=== PATIENT | female | born 1970 | race Caucasian/White ===

== ENCOUNTER 2016-02-26 13:21 | Outpatient (CLI) ==
[2015-06-10 15:14] VITALS: BMI 67.1
--- NOTE | 2016-02-26 14:03 | DI ---
EXAM: LUMBAR SPINE 5 VIEWS HISTORY: Back pain FINDINGS: Lumbar spine five views including bilateral obliques. No comparison. Subtle scoliosis c onvex to the right at the thoracolumbar spine. Sacroiliac joints are within normal limits. Bilater al oblique views reveal no obvious pars interarticularis defect. There is no spondylolisthesis or l oss of vertebral body height. Mild degenerative endplate changes diffusely. Moderate facet arthrop athy lumbosacral junction. No acute fracture. IMPRESSION: Degenerative changes of the spine most noted lumbosacral junction. Subtle scoliosis.
== END 2016-02-26 13:22 | disposition home or self-care (01) ==
LOC: RAD 13:21
PROVIDERS: ATTEND Physician Assistant
DX: R52 Pain, unspecified (principal)

== ENCOUNTER 2016-03-03 19:52 | Emergency (ER) ==
[2016-03-03 20:05] VITALS: BP 150/72; TEMP 99.7; BMI 68.4
--- NOTE | 2016-03-03 20:12 | ED.PDOC ---
General ED Provider: Dr. JEAN NOVAK Chief Complaint: Constipation Stated Complaint: Been constipated for couple days. took OTC meds i did help some, Time Seen by Physician: 20:10 Mode of Arrival: Wheelchair Information Source: Patient Primary Care Provider: TOM VEE Nursing and Triage Documentation Reviewed and Agree: Yes GI Complaint Exam - Abdominal Pain Complaint/Exam Onset: Gradual Symptoms Are: Still present Timing: Constant Initial Severity: Moderate Current Severity: Moderate Location of Pain: Discrete Radiates To: Reports: Flank Character: Reports: Dull, Aching Aggravating: Reports: Movement Alleviating: Reports: None Associated Signs and Symptoms: Denies: Diaphoresis, Fever, Cough, Chest pain, Dizziness, Back pain, Constipation, Blood in stool, Dysuria, Urinary frequency, Decreased urine output, Decreased appetite, Vaginal bleeding, Vaginal discharge , Nausea, Vomiting, Diarrhea, Sore throat, Decreased activity Related History: Reports: Similar episode AAA Risk Factors: Reports: None Cardiac Risk Factors: Reports: None Ectopic Risk Factors: Reports: None Ovarian Torsion Risk Factors: Reports: None Surgical Obstruction Risk Factors: Reports: None Related Surgical History: Reports: None Abdominal Findings: Absent: Pulsatile mass, Abdominal distention, Unequal femoral pulses Differential Diagnoses: Constipation Review of Systems - Review Of Systems Constitutional: Reports: No symptoms Eyes: Reports: No symptoms Ears, Nose, Mouth, Throat: Reports: No symptoms Respiratory: Reports: No symptoms Cardiac: Reports: No symptoms GI: Reports: Abdominal pain, Constipated : Reports: No symptoms Musculoskeletal: Reports: No symptoms Skin: Reports: No symptoms Neurological: Reports: No symptoms Endocrine: Reports: No symptoms Hematologic/Lymphatic: Reports: No symptoms All Other Systems: Reviewed and Negative Past Medical History - Past Medical History Previously Healthy: No Endocrine: Reports: DM 2, Dyslipidemia Cardiovascular: Reports: CAD, Hypertension Respiratory: Reports: None Hematological: Reports: None Gastrointestinal: Reports: GERD Genitourinary: Reports: None Neuro/Psych: Reports: Anxiety, Depression Musculoskeletal: Reports: Arthritis, Back Pain Cancer: Reports: None Last Menstrual Period: 2 months Other Pertinent Past Medical History: I and D of left breast - Surgical History General Surgical History: Reports: Tubal ligation, Appendectomy, Cholecystectomy - Family History Family History: Reports: None - Social History Smoking Status: Never smoker Hx Substance Use: No Alcohol Screening: None Physical Exam - Physical Exam Appearance: Well-appearing, Obese Eyes: PREMA, EOMI, Conjunctiva clear ENT: Ears normal, Nose normal, Oropharynx normal Respiratory: Airway patent, Breath sounds clear, Breath sounds equal, Respirations nonlabored Cardiovascular: RRR, Pulses normal, No rub, No murmur GI/: Tender Musculoskeletal: Normal strength, ROM intact, No edema, No calf tenderness Skin: Warm, Dry, Normal color Neurological: Sensation intact, Motor intact, Reflexes intact, Cranial nerves intact, Alert, Oriented Psychiatric: Affect appropriate, Mood appropriate Critical Care Note - Critical Care Note Total Time (mins): 0 Course - Course Orders, Labs, Meds: Orders Category Date Time Status CT ABDOMEN/PELVIS WO CONTRAST Stat RADS 03/03/16 20:09 Ordered Vital Signs: Temp Pulse Resp BP Pulse Ox 03/03/16 19:55 99.7 F H 88 20 150/72 H 95 Departure - Departure Time of Disposition: 21:00 Disposition: HOME SELF-CARE Discharge Problem: Constipation Instructions: Constipation (ED) Condition: Stable Pt referred to PMD for follow-up: Yes Additional Instructions: Increase hydration pain medication side effects discussed. Prescriptions: Polyethylene Glycol 3350 [Miralax] 17 gm PO DAILY #30 powd.pack Allergies/Adverse Reactions: Allergies Tetanus Vaccines and Toxoid [Tetanus Vaccines & Toxoid] Adverse Reaction ( Verified 06/10/15 15:11) Swelling Home Medications: Ambulatory Orders Aspirin [Jaime Chewable Aspirin] 81 mg PO DAILY 07/02/13 Furosemide [Lasix] 40 mg PO DAILY 07/02/13 Gabapentin [Neurontin] 600 mg PO TID 07/02/13 Glyburide [Diabeta] 10 mg PO BIDAC 07/02/13 Losartan Potassium [Cozaar] 25 mg PO DAILY 07/02/13 Meloxicam [Mobic] 15 mg PO DAILY 07/02/13 Metformin HCl [Glucophage Xr] 2,000 mg PO DAILY 07/02/13 Potassium Chloride [K-Dur] 20 meq PO TID 07/02/13 Cephalexin [Keflex] 500 mg PO BID #20 capsule 11/19/14 Hydrocodone/Acetaminophen [Lortab 7.5-325 mg Tablet] 1 each PO QID 11/19/14 Lorazepam [Ativan] 1 mg PO BID 11/19/14 Buspirone HCl 7.5 mg PO DAILY 06/10/15 Citalopram Hydrobromide [Celexa] 40 mg PO DAILY 06/10/15 Gentamicin Sulfate Opth [Gentak Opth Gisela] 1 drop OP Q3HR #10 drops 06/10/15 Insulin NPL/Insulin Lispro [Humalog Mix 75-25 Vial] 100 unit SUBCUT BID INSULIN 06/10/15 Insulin NPL/Insulin Lispro [Humalog Mix 75-25] 86 unit SUBCUT DIRECTED Omeprazole [Prilosec] 20 mg PO QDAC 06/10/15 Polyethylene Glycol 3350 [Miralax] 17 gm PO DAILY #30 powd.pack 03/03/16 Disposition Discussed With: Patient, Family
--- NOTE | 2016-03-03 20:47 | CT ---
EXAM: CT abdomen pelvis without intravenous contrast 03/03/2016. Sagittal and coronal reformatted images obtained HISTORY: Abdominal pain COMPARISON: 11/25/2014 FINDINGS: The liver shows no acute abnormality. Gallbladder has been removed. The adrenal glands and kidneys show no acute process. No hydronephrosis. The spleen and pancreas show no gross abnormality. No bowel obstruction. There is limited anatomic detail secondary to body habitus in combination wit h lack of intravenous contrast. No acute osseous abnormality. IMPRESSION: 1. Technically limited examination due to body habitus as well as the lack of intravenous contrast. 2. Status post cholecystectomy. 3. No urinary or bowel obstruction. 4. No acute inflammatory process identified within the abdomen or pelvis.
== END 2016-03-03 20:56 | disposition home or self-care (01) ==
LOC: ED 19:52
DX: K59.00 Constipation, unspecified (principal); Z79.899 Other long term (current) drug therapy
CPT/HCPCS: 99282

== ENCOUNTER 2016-04-25 00:19 | Emergency (ER) ==
[2016-04-25 00:30] VITALS: BP 123/65; TEMP 98.4; BMI 67.8
--- NOTE | 2016-04-25 00:57 | ED.PDOC ---
General ED Provider: Dr. HEIDI SHERIDAN Chief Complaint: Shortness of Air Stated Complaint: Patient is a 46 year old female who comes to the ER with 5 history of, nonproductive, fever of 101 approx. 3 days ago, low grade since. States she not able to sleep Time Seen by Physician: 00:56 Mode of Arrival: Wheelchair Information Source: Patient Exam Limitations: No limitations Primary Care Provider: TOM VEE Nursing and Triage Documentation Reviewed and Agree: Yes Review of Systems - Review Of Systems Constitutional: Reports: Fever Respiratory: Reports: Cough, Short of air All Other Systems: Reviewed and Negative Past Medical History - Past Medical History Previously Healthy: No Endocrine: Reports: DM 2, Dyslipidemia Cardiovascular: Reports: CAD, Hypertension Respiratory: Reports: None Hematological: Reports: None Gastrointestinal: Reports: GERD Genitourinary: Reports: None Neuro/Psych: Reports: Anxiety, Depression Musculoskeletal: Reports: Arthritis, Back Pain Cancer: Reports: None Last Menstrual Period: 2 MONTHS AGO, IS IRREGULAR Other Pertinent Past Medical History: I and D of left breast - Surgical History General Surgical History: Reports: Tubal ligation, Appendectomy, Cholecystectomy - Family History Family History: Reports: None - Social History Smoking Status: Former smoker Hx Substance Use: No Alcohol Screening: None - Immunizations Tetanus Shot up to Date: No (ALLERGY TO TETANUS) Physical Exam - Physical Exam Appearance: Well-appearing, No pain distress, Well-nourished Eyes: PREMA, EOMI, Conjunctiva clear ENT: Ears normal, Nose normal, Oropharynx normal Neck: Supple Respiratory: Breath sounds clear, Breath sounds equal, Respirations nonlabored Cardiovascular: RRR, Pulses normal, No rub, No murmur GI/: Soft, Nontender, No masses, Bowel sounds normal, No Organomegaly Musculoskeletal: Normal strength, ROM intact, No edema, No calf tenderness Skin: Warm, Dry, Normal color Neurological: Sensation intact, Motor intact, Reflexes intact, Cranial nerves intact, Alert, Oriented Psychiatric: Affect appropriate, Mood appropriate Critical Care Note - Critical Care Note Total Time (mins): 0 Course - Course Orders, Labs, Meds: Orders Category Date Time Status MOLECULAR GROUP A STREP Stat LAB 04/25/16 01:20 Results STREP SCREEN Stat LAB 04/25/16 01:20 Results Benzonatate [Tessalon Perles] MEDS 04/25/16 01:04 Discontinued 100 mg PO ONCE STA Medications Discontinued Medications Generic Name Dose Route Start Last Admin Trade Name Freq PRN Reason Stop Dose Admin Benzonatate 100 mg 04/25/16 01:04 04/25/16 01:15 Tessalon Perles PO 04/25/16 01:05 100 mg ONCE STA Administration Vital Signs: Temp Pulse Resp BP Pulse Ox 04/25/16 00:21 98.4 F 88 28 H 123/65 95 Departure - Departure Time of Disposition: 01:39 Disposition: HOME SELF-CARE Discharge Problem: Common cold virus Instructions: Pharyngitis (ED), Cold Symptoms (ED) Condition: Fair Pt referred to PMD for follow-up: Yes Additional Instructions: Push fluids Follow up with PCP in 3 days Tale medications as prescribed. Prescriptions: Benzonatate [Tessalon Perles] 100 mg PO TID PRN #25 capsule PRN Reason: Cold Symptons Allergies/Adverse Reactions: Allergies Tetanus Vaccines and Toxoid [Tetanus Vaccines & Toxoid] Adverse Reaction ( Verified 04/25/16 00:30) Swelling Home Medications: Ambulatory Orders Aspirin [Jaime Chewable Aspirin] 81 mg PO DAILY 07/02/13 Furosemide [Lasix] 40 mg PO BID 07/02/13 Gabapentin [Neurontin] 600 mg PO TID 07/02/13 Glyburide [Diabeta] 10 mg PO BIDAC 07/02/13 Losartan Potassium [Cozaar] 25 mg PO DAILY 07/02/13 Meloxicam [Mobic] 15 mg PO DAILY 07/02/13 Metformin HCl [Glucophage Xr] 2,000 mg PO DAILY 07/02/13 Potassium Chloride [K-Dur] 20 meq PO TID 07/02/13 Hydrocodone/Acetaminophen [Lortab 7.5-325 mg Tablet] 1 each PO QID 11/19/14 Lorazepam [Ativan] 1 mg PO BID 11/19/14 Buspirone HCl 15 mg PO BID 06/10/15 Citalopram Hydrobromide [Celexa] 40 mg PO DAILY 06/10/15 Omeprazole [Prilosec] 40 mg PO QDAC 06/10/15 Polyethylene Glycol 3350 [Miralax] 17 gm PO DAILY #30 powd.pack 03/03/16 Benzonatate [Tessalon Perles] 100 mg PO TID PRN #25 capsule 04/25/16 Insulin Regular, Human [Humulin R] 32 unit SQ TID 04/25/16 Ranitidine HCl [Zantac] 150 mg PO BIDAC 04/25/16 Disposition Discussed With: Patient, Family
[2016-04-25] MEDS ORDERED: TESSALON PERLES PO STA (01:04)
== END 2016-04-25 01:50 | disposition home or self-care (01) ==
LOC: ED 00:19
DX: J02.9 Acute pharyngitis, unspecified (principal)
CPT/HCPCS: 87651; 87880; 99283

== ENCOUNTER 2016-05-20 06:35 | Outpatient (CLI) ==
[2016-05-02 15:40] VITALS: BMI 67.8
--- NOTE | 2016-05-20 10:46 | ECHO2D ---
Date of Exam: 05/20/16 Ordering Physician: TOM VEE[facility] Reason for Echo: NOCTURNAL DYSPNEA M-Mode Normal Adult Results LV Dimensions Normal Adult Results AoV Opening excursions >1.6 >1.6 LVEDD-base- 3.5-5.8 4.6 Ao root dimensions 2.0-3.7 3.8 LVESD-base- 3.1-4.6 L. Atrium dimensions 1.9-3.8 4.2 Post. Wall thickness 0.8-1.1 1.4 IV septum (thickness) 0.7-1.2 1.5 Post. Wall excursion 0.72-1.3 NORMAL Septal motion NORMAL Systolic motion R. Ventricular cavity 1.5-2.0 NORMAL LVEF 60% 62% Paradoxical septal wall motion NORMAL 2-D :2-D M Mode Echocardiogram was performed using apical four chamber and left parasternal long and short axis views. Mitral, tricuspid and aortic valves appear to be normal. Contractility of the left ventricle seems to be normal, so is the cavity size. Left atrial cavity size and aortic root appear to be normal. There is no pericardial effusion. There is no thrombus noted in the left ventricular or left aortic cavity. No mitral valve prolapse noted. M-MODE: MV: THICKENED MITRAL LEAFLET (ANTERIOR) AV: NORMAL TV: NORMAL PV: CHAMBER SIZE: ENLARGED LEFT ATRIAL CAVITY WALL MOTION: NORMAL PERICARDIUM: NORMAL INTERPRETATION: 1. LEFT VENTRICULAR HYPERTROPHY WITH ENLARGED LEFT ATRIAL CAVITY 2. NORMAL LEFT VENTRICULAR CONTRACTILITY 3. NORMAL MITRAL AND AORTIC VALVES MTDD
== END 2016-05-20 06:36 | disposition home or self-care (01) ==
LOC: CAR 06:35
PROVIDERS: ATTEND Physician Assistant
DX: R06.00 Dyspnea, unspecified (principal)

== ENCOUNTER 2017-02-03 21:04 | Emergency (ER) ==
[2017-02-03 21:10] VITALS: BP 142/79; TEMP 98.8; BMI 68.1
--- NOTE | 2017-02-03 21:38 | ED.PDOC ---
General ED Provider: Dr. KOBE PEOPLES-ER Chief Complaint: Earache Stated Complaint: my throat is sore and my ear hurts Time Seen by Physician: 21:10 Mode of Arrival: Wheelchair Information Source: Patient Exam Limitations: No limitations Primary Care Provider: TOM VEE Nursing and Triage Documentation Reviewed and Agree: Yes Reviewed sepsis parameters & appropriate labs ordered?: Yes System Inflammatory Response Syndrome: Not Applicable Sepsis Protocol: For patient's 13 years and over: Temp is 96.8 and below OR 101 and greater Pulse >90 BPM Resp >20/minute Acutely Altered Mental Status Are patient's symptoms suggestive of a new infection, such as: -Pneumonia -Skin, Soft Tissue -Endocarditis -UTI -Bone, Joint Infection -Implantable Device -Acute Abdominal Infection -Wound Infection -Meningitis -Blood Stream Catheter Infection -Unknown EENT Complaint Exam - Throat Complaint/Exam Onset/Duration: 24 hrs Symptoms Are: Still present Timimg: Constant Initial Severity: Mild Current Severity: Mild Aggravating: Reports: Eating Alleviating: Reports: Antipyretics Associated Signs and Symptoms: Reports: Fever, Nasal congestion. Denies: Dysphagia, Drooling, Foreign body sensation, Chills, Cough, Wheezing, Hoarseness , Sinus discomfort, Difficulty breathing, Lethargy, Irritability, Decreased activity, Vomiting, Diarrhea, Decreased hearing Related History: Reports: Similar Episode Uvula Midline: Yes Beatriz-tonsillar Fluctuence: No Scarlatinaform Rash Present: No Stridor Present: No Sinus Tenderness Present: No Tonsillar Hypertrophy Present: Yes Tonsillar Exudate Present: No Beatriz-tonsillar Swelling Present: No Adenopathy Present: No Splenomegaly Present: No Differential Diagnoses: Pharyngitis Review of Systems - Review Of Systems Constitutional: Reports: Fever Eyes: Reports: No symptoms Ears, Nose, Mouth, Throat: Reports: Throat pain Respiratory: Reports: No symptoms Cardiac: Reports: No symptoms GI: Reports: No symptoms : Reports: No symptoms Musculoskeletal: Reports: No symptoms Skin: Reports: No symptoms Neurological: Reports: No symptoms Endocrine: Reports: No symptoms Hematologic/Lymphatic: Reports: No symptoms All Other Systems: Reviewed and Negative Past Medical History - Past Medical History Previously Healthy: No Endocrine: Reports: DM 2, Dyslipidemia Cardiovascular: Reports: CAD, Hypertension Respiratory: Reports: None Hematological: Reports: None Gastrointestinal: Reports: GERD Genitourinary: Reports: None Neuro/Psych: Reports: Anxiety, Depression Musculoskeletal: Reports: Arthritis, Back Pain Cancer: Reports: None Last Menstrual Period: 2 MONTHS Other Pertinent Past Medical History: I and D of left breast - Surgical History General Surgical History: Reports: Tubal ligation, Appendectomy, Cholecystectomy - Family History Family History: Reports: None - Social History Smoking Status: Former smoker Hx Substance Use: No Alcohol Screening: None - Immunizations Tetanus Shot up to Date: No Physical Exam - Physical Exam Appearance: Well-appearing Eyes: PREMA ENT: Ears normal, Nose normal, Erythema Neck: Supple Respiratory: Airway patent, Breath sounds clear, Breath sounds equal, Respirations nonlabored Cardiovascular: RRR, Pulses normal, No rub, No murmur GI/: Soft, Nontender, No masses, Bowel sounds normal, No Organomegaly Musculoskeletal: Normal strength Skin: Warm, Dry, Normal color Neurological: Sensation intact, Motor intact, Reflexes intact, Cranial nerves intact, Alert, Oriented Psychiatric: Affect appropriate, Mood appropriate Critical Care Note - Critical Care Note Total Time (mins): 0 Course - Course Orders, Labs, Meds: Lab Review 02/03/17 21:19 Influenza A (Rapid) Negative by naat Influenza B (Rapid) Negative by naat Orders Category Date Time Status FLU A & B RAPID TEST [RAPID FLU A/B] Stat LAB 02/03/17 21:19 Completed MOLECULAR GROUP A STREP Stat LAB 02/03/17 21:19 Results STREP SCREEN Stat LAB 02/03/17 21:19 Results Vital Signs: Temp Pulse Resp BP Pulse Ox 02/03/17 21:05 98.8 F 82 18 142/79 H 98 Departure - Departure Time of Disposition: 21:39 Disposition: HOME SELF-CARE Discharge Problem: Sore throat symptom Instructions: Strep Throat (ED) Condition: Good Pt referred to PMD for follow-up: Yes Additional Instructions: augmentin 875mg bid x 7days--f/u wtih pcp in 72hrs if not better Allergies/Adverse Reactions: Allergies Tetanus Vaccines and Toxoid [Tetanus Vaccines & Toxoid] Adverse Reaction ( Verified 04/25/16 00:30) Swelling Home Medications: Ambulatory Orders Aspirin [Jaime Chewable Aspirin] 81 mg PO DAILY 07/02/13 Furosemide [Lasix] 40 mg PO BID 07/02/13 Gabapentin [Neurontin] 600 mg PO TID 07/02/13 Glyburide [Diabeta] 10 mg PO BIDAC 07/02/13 Losartan Potassium [Cozaar] 25 mg PO DAILY 07/02/13 Meloxicam [Mobic] 15 mg PO DAILY 07/02/13 Metformin HCl [Glucophage Xr] 2,000 mg PO DAILY 07/02/13 Potassium Chloride [K-Dur] 20 meq PO TID 07/02/13 Hydrocodone/Acetaminophen [Lortab 7.5-325 mg Tablet] 1 each PO QID 11/19/14 Lorazepam [Ativan] 1 mg PO BID 11/19/14 Buspirone HCl 15 mg PO BID 06/10/15 Citalopram Hydrobromide [Celexa] 40 mg PO DAILY 06/10/15 Omeprazole [Prilosec] 40 mg PO QDAC 06/10/15 Polyethylene Glycol 3350 [Miralax] 17 gm PO DAILY #30 powd.pack 03/03/16 Benzonatate [Tessalon Perles] 100 mg PO TID PRN #25 capsule 04/25/16 Insulin Regular, Human [Humulin R] 32 unit SQ TID 04/25/16 Ranitidine HCl [Zantac] 150 mg PO BIDAC 04/25/16 Disposition Discussed With: Patient, Family
== END 2017-02-03 21:48 | disposition home or self-care (01) ==
LOC: ED 21:04
DX: J02.9 Acute pharyngitis, unspecified (principal)
CPT/HCPCS: 87502; 87651; 87880; 99283

== ENCOUNTER 2017-12-07 17:20 | Outpatient (CLI) ==
--- NOTE | 2017-12-08 08:18 | DI ---
EXAM: Two views of the chest. History: Chest pain. Comparison: Chest CT 12/26/2014 Findings: Heart size is normal. No focal consolidation. No appreciable pleural fluid and no pneumo thorax. No acute osseous abnormalities. A few calcified granulomas are seen within the thorax. Impression: No acute cardiopulmonary process
== END 2017-12-07 17:21 | disposition home or self-care (01) ==
LOC: RAD 17:20
PROVIDERS: ATTEND Physician Assistant
DX: R07.89 Other chest pain (principal)

== ENCOUNTER 2018-02-11 06:27 | Outpatient (CLI) ==
[2018-02-11] MEDS ORDERED: ATROPINE SULFATE PFS ONE (07:36)
[2018-02-11] MEDS: DOBUTAMINE 500 MG-D5W 250 ML 250 ML IV ONE ×2 (07:45→08:11)
--- NOTE | 2018-02-11 09:02 | ECHOSTRESS ---
Date of Exam: 02/11/18 Ordering Physician: [facility] Reason for Echo: ATYPICAL CHEST PAIN, DOBUTAMINE STRESS TEST--NO ISCHEMIA M-Mode Normal Adult Results LV Dimensions Normal Adult Results AoV Opening excursions >1.6 LVEDD-base- 3.5-5.8 Ao root dimensions 2.0-3.7 LVESD-base- 3.1-4.6 L. Atrium dimensions 1.9-3.8 Post. Wall thickness 0.8-1.1 IV septum (thickness) 0.7-1.2 Post. Wall excursion 0.72-1.3 Septal motion Systolic motion R. Ventricular cavity 1.5-2.0 LVEF 60% Paradoxical septal wall motion 2-D: NORMAL LEFT VENTRICULAR CONTRACTILITY--RESTING AND WITH DOBUTAMINE INFUSION M-MODE: MV: AV: TV: PV: CHAMBER SIZE: WALL MOTION: NORMAL LEFT VENTRICULAR CONTRACTILITY--RESTING AND WITH DOBUTAMINE INFUSION PERICARDIUM: INTERPRETATION: 1. NORMAL LEFT VENTRICULAR CONTRACTILITY--RESTING AND WITH DOBUTAMINE INFUSION MTDD
--- NOTE | 2018-02-11 09:09 | DOBSTECHO ---
Date of Test: 02/11/18 Ordering Physician: [facility] [place] Reason for Examination: ATYPICAL CHEST PAIN Current Medications: LANTUS, HUMULIN, GLUCOPHAGE, ASA, NEURONTIN, CELEXA, BUSPAR , COZAAR, ZANTAC, LASIX, ATIVAN, NORCO, POTASSIUM Height: 66" Weight: 415 LBS Target Heart Rate: 147/174 S-T Segment Stage Time HR BPM BP MMHG Rhythm +/- Elevation Depression Symptoms Control Sitting 76 BPM 140/72 MMHG SR X NONE Dobutamine 250mg/D5W 5cmg/KG/mn 10cmg/KG/mn 3:00 93 BPM 160/58 MMHG SR X NONE 15cmg/KG/mn 2:00 110 BPM SR X NONE 20cmg/KG/mn 2:00 140 BPM 148/58 MMHG SR X NONE 25cmg/KG/mn 30cmg/KG/mn 35cmg/KG/mn 40cmg/KG/mn 5 MIN POST INFUSION z 115 BPM 138 60 MMHG SR X NONE MIN POST INFUSION z DURATION OF INFUSION 7:00 MAXIMUM HEART RATE REACHED 140 BPM Interpretation: 98% OXYGEN SATURATION WITH DOBUTAMINE INFUSION 1. NO EVIDENCE OF ISCHEMIA BY ST-T WAVE CHANGES 2. NO CHEST PAIN OR DISCOMFORT 3. NORMAL LEFT VENTRICULAR CONTRACTILITY--RESTING AND POST EXERCISE 4. DIFFICULT STUDY BECAUSE OF BODY HABITUS MTDD
== END 2018-02-11 06:28 | disposition home or self-care (01) ==
LOC: CAR 06:27
PROVIDERS: ATTEND Physician Assistant
DX: R07.89 Other chest pain (principal)

== ENCOUNTER 2018-02-22 07:52 | Outpatient (CLI) | END 2018-02-22 07:53 | disposition home or self-care (01) | LOC: LAB 07:52 | PROVIDERS: ATTEND Nurse Practitioner | DX: E11.65 Type 2 diabetes mellitus with hyperglycemia (principal); E88.81 Metabolic syndrome and other insulin resistance; Z68.44 Body mass index [BMI] 60.0-69.9, adult | CPT/HCPCS: 36415; 80053; 82306; 82533; 82607; 83036; 84439; 84443; 85025 ==

== ENCOUNTER 2018-05-23 17:26 | Emergency (ER) ==
[2018-05-23 17:37] VITALS: BMI 70.7
[2018-05-23] MEDS ORDERED: DUONEB NEB STA (17:51)
[2018-05-23] MEDS ORDERED: TESSALON PERLES PO STA (17:51)
--- NOTE | 2018-05-23 17:51 | ED.PDOC ---
General ED Provider: Dr. HEIDI SHERIDAN Chief Complaint: Respiratory Complaint Stated Complaint: Nasal congestion/ drainage, cough (nonprod), short of air. H/ A. Symptoms x 1 week. Taking mucinex et OTC cold/ sinus med. Time Seen by Physician: 17:48 Mode of Arrival: Wheelchair Information Source: Patient Primary Care Provider: TOM VEE Nursing and Triage Documentation Reviewed and Agree: Yes Does patient meet sepsis criteria?: No System Inflammatory Response Syndrome: Not Applicable Sepsis Protocol: For patient's 13 years and over: Temp is 96.8 and below OR 101 and greater Pulse >90 BPM Resp >20/minute Acutely Altered Mental Status Are patient's symptoms suggestive of a new infection, such as: -Pneumonia -Skin, Soft Tissue -Endocarditis -UTI -Bone, Joint Infection -Implantable Device -Acute Abdominal Infection -Wound Infection -Meningitis -Blood Stream Catheter Infection -Unknown Review of Systems - Review Of Systems Constitutional: Reports: No symptoms Eyes: Reports: No symptoms Ears, Nose, Mouth, Throat: Reports: No symptoms Respiratory: Reports: Cough, Short of air, Wheezing Cardiac: Reports: No symptoms GI: Reports: No symptoms : Reports: No symptoms Musculoskeletal: Reports: No symptoms Skin: Reports: No symptoms Neurological: Reports: No symptoms Endocrine: Reports: No symptoms Hematologic/Lymphatic: Reports: No symptoms All Other Systems: Reviewed and Negative Past Medical History - Past Medical History Previously Healthy: No Endocrine: Reports: DM 2, Dyslipidemia Cardiovascular: Reports: CAD, Hypertension Respiratory: Reports: None Hematological: Reports: None Gastrointestinal: Reports: GERD Genitourinary: Reports: None Neuro/Psych: Reports: Anxiety, Depression Musculoskeletal: Reports: Arthritis, Back Pain Cancer: Reports: None Last Menstrual Period: 05/05/17 Other Pertinent Past Medical History: I and D of left breast - Surgical History General Surgical History: Reports: Tubal ligation, Appendectomy, Cholecystectomy - Family History Family History: Reports: None - Social History Smoking Status: Former smoker Hx Substance Use: No Alcohol Screening: None Physical Exam - Physical Exam Appearance: Ill-appearing, Obese Ill-appearing: Mild Pain Distress: Moderate Neck: Supple Respiratory: Airway patent, Breath sounds clear, Breath sounds equal, Respirations nonlabored Cardiovascular: RRR, Pulses normal, No rub, No murmur GI/: Soft, Nontender, No masses, Bowel sounds normal, No Organomegaly Musculoskeletal: Normal strength, ROM intact, No edema, No calf tenderness Skin: Warm, Dry, Normal color Neurological: Sensation intact, Motor intact, Reflexes intact, Cranial nerves intact, Alert, Oriented Critical Care Note - Critical Care Note Total Time (mins): 0 Course - Course Hematology/Chemistry: 05/23/18 18:02 05/23/18 18:02 Orders, Labs, Meds: Lab Review 05/23/18 05/23/18 05/23/18 18:02 18:02 18:08 WBC 7.56 RBC 3.79 L Hgb 12.2 Hct 37.4 MCV 98.7 MCH 32.2 H MCHC 32.6 RDW Coeff of Gogo 13.7 Plt Count 181 Immature Gran % (Auto) 0.4 Neut % (Auto) 66.0 Lymph % (Auto) 24.3 Bay % (Auto) 6.9 Eos % (Auto) 1.9 Baso % (Auto) 0.5 Immature Gran # (Auto) 0.0 Neut # (Auto) 5.0 Lymph # (Auto) 1.8 [place] # (Auto) 0.5 Eos # (Auto) 0.1 Baso # (Auto) 0.0 Sodium 135.8 Potassium 4.30 Chloride 97.9 L Carbon Dioxide 28.2 Anion Gap 14.00 BUN 15.9 Creatinine 0.57 L Estimated GFR (MDRD) 114.00 BUN/Creatinine Ratio 27.89 Glucose 289.3 H Calcium 9.11 Total Bilirubin 0.59 AST 61.1 H ALT 29.0 Alkaline Phosphatase 118.5 Total Protein 8.08 Albumin 4.34 Globulin 3.74 Albumin/Globulin Ratio 1.16 Influ A Molecular Assay Negative by naat Influ B Molecular Assay Negative by naat Orders Category Date Time Status NEBULIZER TREATMENT Stat CARDIO 05/23/18 17:52 Completed CBC W/ AUTO DIFF Stat LAB 05/23/18 18:02 Completed COMPREHENSIVE METABOLIC PANEL Stat LAB 05/23/18 18:02 Completed FLU A/B MOLECULAR Stat LAB 05/23/18 18:08 Completed Amoxicillin/Potassium Clav [Augmentin 875-125 mg Tab] MEDS 05/23/18 18:38 Discontinued 1 tab PO ONCE STA Benzonatate [Tessalon Perles] MEDS 05/23/18 17:51 Discontinued 200 mg PO ONCE STA Ipratropium/Albuterol Neb [Duoneb] MEDS 05/23/18 17:51 Discontinued 1 vial NEB ONCE STA CHEST, 2 VIEWS PA & LAT Stat RADS 05/23/18 17:51 Completed Medications Discontinued Medications Generic Name Dose Route Start Last Admin Trade Name Geraldoq PRN Reason Stop Dose Admin Albuterol/Ipratropium 1 vial 05/23/18 17:51 05/23/18 18:00 Duoneb NEB 05/23/18 17:52 1 vial ONCE STA Administration Amoxicillin/Clavulanate Potassium 1 tab 05/23/18 18:38 Augmentin 875-125 Mg Tab PO 05/23/18 18:39 ONCE STA Benzonatate 200 mg 05/23/18 17:51 05/23/18 18:09 Tessalon Perles PO 05/23/18 17:52 200 mg ONCE STA Administration Vital Signs: Temp Pulse Resp BP Pulse Ox 05/23/18 17:29 98.0 F 74 20 168/70 H 93 L Departure - Departure Time of Disposition: 18:39 Disposition: HOME SELF-CARE Discharge Problem: Pneumonia Qualifiers: Pneumonia type: due to unspecified organism Laterality: unspecified laterality Lung location: unspecified part of lung Qualified Code(s): J18.9 - Pneumonia, unspecified organism Instructions: Community Acquired Pneumonia (ED) Condition: Stable Pt referred to PMD for follow-up: Yes IPMP verified?: No Additional Instructions: take medications as prescribed follow up with PCP in 3 days Prescriptions: Amoxicillin/Potassium Clav [Augmentin 500-125 mg Tab] 1 tab PO Q8HR #30 tablet Benzonatate [Tessalon Perles] 100 mg PO TID PRN #25 capsule PRN Reason: Cold Symptons Allergies/Adverse Reactions: Allergies Tetanus Vaccines and Toxoid [Tetanus Vaccines & Toxoid] Adverse Reaction ( Verified 05/23/18 17:36) Swelling Home Medications: Ambulatory Orders Aspirin [Jaime Chewable Aspirin] 81 mg PO DAILY 07/02/13 Furosemide [Lasix] 40 mg PO BID 07/02/13 Gabapentin [Neurontin] 900 mg PO TID 07/02/13 Losartan Potassium [Cozaar] 25 mg PO DAILY 07/02/13 Metformin HCl [Glucophage Xr] 2,000 mg PO DAILY 07/02/13 Potassium Chloride [K-Dur] 20 meq PO TID 07/02/13 Hydrocodone/Acetaminophen [Lortab 7.5-325 mg Tablet] 1 each PO QID 11/19/14 Lorazepam [Ativan] 2 mg PO DAILY 11/19/14 Buspirone HCl 15 mg PO BID 06/10/15 Citalopram Hydrobromide [Celexa] 40 mg PO DAILY 06/10/15 Omeprazole [Prilosec] 40 mg PO QDAC 06/10/15 Insulin Regular, Human [Humulin R] 150 unit SQ TID 04/25/16 Ranitidine HCl [Zantac] 150 mg PO BIDAC 04/25/16 Amoxicillin/Potassium Clav [Augmentin 500-125 mg Tab] 1 tab PO Q8HR #30 tablet 05/23/18 Benzonatate [Tessalon Perles] 100 mg PO TID PRN #25 capsule 05/23/18 Pioglitazone HCl [Actos] 15 mg PO DAILY 05/23/18 Polyethylene Glycol 3350 [Miralax] 17 gm PO DAILY PRN 05/23/18 Disposition Discussed With: Patient
--- NOTE | 2018-05-23 18:31 | DI ---
EXAM: Chest PA and lateral HISTORY: Cough. COMPARRISON: 12/07/2017 FINDINGS: The heart is normal in size. Pulmonary vascularity is within normal limits. Patchy opacit y overlies the costovertebral angles on lateral radiograph. This is not well localized on the PA rad iograph. No evidence of pleural effusion is seen. IMPRESSION: Patchy opacities overlying the costovertebral angle seen only on lateral radiograph. This is concern ing for dependent atelectasis versus pneumonia. Recommend follow-up two-view chest radiograph series in six - 8 weeks to demonstrate resolution and exclude other etiologies.
[2018-05-23] MEDS ORDERED: AUGMENTIN 875-125 MG TAB PO STA (18:38)
[2018-05-23 18:48] VITALS: BP 135/92; TEMP 98.7
== END 2018-05-23 18:53 | disposition home or self-care (01) ==
LOC: ED 17:26
DX: R05 Cough (principal); R09.81 Nasal congestion; R06.02 Shortness of breath; R51 Headache; R06.2 Wheezing; J18.9 Pneumonia, unspecified organism
CPT/HCPCS: 36415; 80053; 85025; 87502; 94640; 99283

== ENCOUNTER 2018-08-21 16:51 | Emergency (ER) ==
[2018-08-21 16:57] VITALS: BP 146/82; TEMP 100; BMI 69.9
--- NOTE | 2018-08-21 17:08 | ED.PDOC ---
General ED Provider: Dr. KOBE BENOIT Chief Complaint: Abdominal Pain Stated Complaint: Abdominal pain. States has been nauseated and having conspitation for several days and has not had a good bowel movement in a while. States she take stool softners and most recently ingested mag citrate. Developed much discomfort Has not been eating, thinks she may have a blockage. Was seen by her pcp. States she frequently has loud burps after drinkng fluids which are malodorous. Denies nausea or vomiting Time Seen by Physician: 17:30 Mode of Arrival: Wheelchair Information Source: Patient Exam Limitations: No limitations Primary Care Provider: TOM VEE Nursing and Triage Documentation Reviewed and Agree: Yes Does patient meet sepsis criteria?: No System Inflammatory Response Syndrome: Pulse >90 BPM, Not Applicable Sepsis Protocol: For patient's 13 years and over: Temp is 96.8 and below OR 101 and greater Pulse >90 BPM Resp >20/minute Acutely Altered Mental Status Are patient's symptoms suggestive of a new infection, such as: -Pneumonia -Skin, Soft Tissue -Endocarditis -UTI -Bone, Joint Infection -Implantable Device -Acute Abdominal Infection -Wound Infection -Meningitis -Blood Stream Catheter Infection -Unknown GI Complaint Exam - Abdominal Pain Complaint/Exam Onset: Gradual Duration: 4-5 d Symptoms Are: Still present Timing: Intermittent Initial Severity: Moderate Current Severity: Mild Location of Pain: Diffuse, RUQ, LUQ, Epigastric Character: Reports: Aching, Cramping, Colicky Aggravating: Reports: None Alleviating: Reports: Spontaneous resolution Associated Signs and Symptoms: Reports: Diarrhea AAA Risk Factors: Reports: None Cardiac Risk Factors: Reports: None Ectopic Risk Factors: Reports: None Ovarian Torsion Risk Factors: Reports: None Surgical Obstruction Risk Factors: Reports: None Related Surgical History: Reports: None Abdominal Findings: Present: CVA Tenderness. Absent: Pulsatile mass, Abdominal distention, Rebound tenderness, Peritoneal signs, McBurney's Point tender, Hernia, Inguinal swelling Review of Systems - Review Of Systems Constitutional: Reports: No symptoms Eyes: Reports: No symptoms Ears, Nose, Mouth, Throat: Reports: No symptoms Respiratory: Reports: No symptoms Cardiac: Reports: No symptoms GI: Reports: Abdominal pain, Constipated : Reports: No symptoms Musculoskeletal: Reports: No symptoms Skin: Reports: No symptoms Neurological: Reports: No symptoms Endocrine: Reports: No symptoms Hematologic/Lymphatic: Reports: No symptoms All Other Systems: Reviewed and Negative Past Medical History - Past Medical History Previously Healthy: No Endocrine: Reports: DM 2, Dyslipidemia Cardiovascular: Reports: CAD, Hypertension Respiratory: Reports: None Hematological: Reports: None Gastrointestinal: Reports: GERD Genitourinary: Reports: None Neuro/Psych: Reports: Anxiety, Depression Musculoskeletal: Reports: Arthritis, Back Pain Cancer: Reports: None Last Menstrual Period: na and had sex in 5 years Other Pertinent Past Medical History: I and D of left breast - Surgical History General Surgical History: Reports: Tubal ligation, Appendectomy, Cholecystectomy - Family History Family History: Reports: None - Social History Smoking Status: Former smoker Hx Substance Use: No Alcohol Screening: None - Immunizations Tetanus Shot up to Date: No Physical Exam - Physical Exam Appearance: Well-appearing, Obese Ill-appearing: Mild Pain Distress: Mild Eyes: PREMA, EOMI, Conjunctiva clear ENT: Ears normal, Nose normal, Oropharynx normal Neck: Supple Respiratory: Airway patent, Breath sounds clear, Breath sounds equal, Respirations nonlabored Cardiovascular: RRR, Pulses normal, No rub, No murmur GI/: Soft, No masses, Bowel sounds normal, No Organomegaly, Tender, Bowel sounds hypoactive Musculoskeletal: Normal strength, ROM intact, No edema, No calf tenderness Skin: Warm, Dry, Normal color Neurological: Sensation intact, Motor intact, Reflexes intact, Cranial nerves intact, Alert, Oriented Psychiatric: Affect appropriate, Mood appropriate, Anxious Interpretation - Radiology Interpretation Radiology Interpretation By: Radiologist Exam Interpreted: CT Scan (abdomen pelvis/no acute obstruction or inflamatory changes) Critical Care Note - Critical Care Note Total Time (mins): 30 Course - Course Hematology/Chemistry: 08/21/18 17:19 08/21/18 17:19 Orders, Labs, Meds: Lab Review 08/21/18 08/21/18 08/21/18 17:19 17:19 17:50 WBC 13.21 H RBC 4.27 Hgb 13.7 Hct 41.2 MCV 96.5 MCH 32.1 H MCHC 33.3 RDW Coeff of Gogo 14.4 Plt Count 253 Immature Gran % (Auto) 0.4 Neut % (Auto) 73.2 Lymph % (Auto) 18.2 [place] % (Auto) 7.1 Eos % (Auto) 0.6 Baso % (Auto) 0.5 Immature Gran # (Auto) 0.1 Neut # (Auto) 9.7 H Lymph # (Auto) 2.4 [place] # (Auto) 0.9 Eos # (Auto) 0.1 Baso # (Auto) 0.1 ESR 79 H Sodium 139.4 Potassium 4.16 Chloride 101.2 Carbon Dioxide 24.6 Anion Gap 17.76 BUN 15.2 Creatinine 0.76 Estimated GFR (MDRD) 82.00 BUN/Creatinine Ratio 20.00 Glucose 225.9 H Calcium 9.53 Total Bilirubin 0.46 AST 59.4 H ALT 29.9 Alkaline Phosphatase 112.7 Total Protein 8.71 H Albumin 4.36 Globulin 4.35 Albumin/Globulin Ratio 1.00 Lipase 129.5 Urine Color Urine Clarity Urine pH Ur Specific Cle[place] Urine Protein Urine Glucose (UA) Urine Ketones Urine Blood Urine Nitrite Urine Bilirubin Urine Urobilinogen Ur Leukocyte Esterase Stl Occult Blood (IFOB) Negative Stool Occult Blood #2 No specimen received Stool Occult Blood #3 No specimen received 08/21/18 19:33 WBC RBC Hgb Hct MCV MCH MCHC RDW Coeff of Gogo Plt Count Immature Gran % (Auto) Neut % (Auto) Lymph % (Auto) [place] % (Auto) Eos % (Auto) Baso % (Auto) Immature Gran # (Auto) Neut # (Auto) Lymph # (Auto) [place] # (Auto) Eos # (Auto) Baso # (Auto) ESR Sodium Potassium Chloride Carbon Dioxide Anion Gap BUN Creatinine Estimated GFR (MDRD) BUN/Creatinine Ratio Glucose Calcium Total Bilirubin AST ALT Alkaline Phosphatase Total Protein Albumin Globulin Albumin/Globulin Ratio Lipase Urine Color Yellow Urine Clarity Clear Urine pH 5.0 Ur Specific Clements <=1.005 Urine Protein Negative Urine Glucose (UA) 2+ Urine Ketones Negative Urine Blood Negative Urine Nitrite Negative Urine Bilirubin Negative Urine Urobilinogen 0.2 Ur Leukocyte Esterase Negative Stl Occult Blood (IFOB) Stool Occult Blood #2 Stool Occult Blood #3 Orders Category Date Time Status CBC W/ AUTO DIFF Stat LAB 08/21/18 17:19 Completed CMP [COMPREHENSIVE METABOLIC PANEL] Stat LAB 08/21/18 17:19 Completed ESR Stat LAB 08/21/18 17:19 Completed LIPASE Stat LAB 08/21/18 17:19 Completed OCCULT BLOOD, STOOL Stat LAB 08/21/18 17:50 Completed UA [URINALYSIS C & S IF INDICATED] Stat LAB 08/21/18 19:[address] ABDOMEN/PELVIS WO CONTRAST Stat RADS 08/21/18 17:09 Completed Vital Signs: Temp Pulse Resp BP Pulse Ox 08/21/18 16:53 100 F H 94 H 16 146/82 H 92 L Departure - Departure Time of Disposition: 20:40 Disposition: HOME SELF-CARE Discharge Problem: Constipation, Non-insulin dependent diabetes mellitus treated with insulin Instructions: Constipation (ED), Gastroparesis (ED) Condition: Good Pt referred to PMD for follow-up: Yes IPMP verified?: No Additional Instructions: Take Metamucil daily Diet as tolerated Schedule apt with GI for endoscopy Allergies/Adverse Reactions: Allergies Tetanus Vaccines and Toxoid [Tetanus Vaccines & Toxoid] Adverse Reaction ( Verified 05/23/18 17:36) Swelling Home Medications: Ambulatory Orders Aspirin [Jaime Chewable Aspirin] 81 mg PO DAILY 07/02/13 Furosemide [Lasix] 40 mg PO BID 07/02/13 Gabapentin [Neurontin] 900 mg PO TID 07/02/13 Losartan Potassium [Cozaar] 25 mg PO DAILY 07/02/13 Metformin HCl [Glucophage Xr] 2,000 mg PO DAILY 07/02/13 Potassium Chloride [K-Dur] 20 meq PO TID 07/02/13 Hydrocodone/Acetaminophen [Lortab 7.5-325 mg Tablet] 1 each PO QID 11/19/14 Lorazepam [Ativan] 2 mg PO DAILY 11/19/14 Buspirone HCl 15 mg PO BID 06/10/15 Citalopram Hydrobromide [Celexa] 40 mg PO DAILY 06/10/15 Omeprazole [Prilosec] 40 mg PO QDAC 06/10/15 Insulin Regular, Human [Humulin R] 150 unit SQ TID 04/25/16 Ranitidine HCl [Zantac] 150 mg PO BIDAC 04/25/16 Pioglitazone HCl [Actos] 15 mg PO DAILY 05/23/18 Polyethylene Glycol 3350 [Miralax] 17 gm PO DAILY PRN 05/23/18 Lubiprostone [Amitiza] 24 mg PO BID BREAKFAST&LUNCH 08/21/18
--- NOTE | 2018-08-21 17:45 | CT ---
EXAM: CT abdomen and pelvis without contrast HISTORY: Abdominal pain and constipation TECHNIQUE: Multi-slice transaxial helical with coronal and sagittal reformed images COMPARISON: CT abdomen and pelvis 03/03/2016 FINDINGS: The exam is limited by quantum model artifact related to the patient's body habitus. The h eart size is normal. No pericardial or pleural effusions are appreciated. No acute infiltrates are appreciated. A calcified granuloma is noted in the left lower lobe. The hepatic surface contours are diffusely nodular. The hepatic attenuation is normal relative to th e spleen. The spleen is enlarged to 14.2 cm. The gallbladder is surgically absent. The pancreas an d adrenal glands are grossly normal. The kidneys have normal size and attenuation. Ureters are nond ilated. The nonopacified bladder is grossly normal. The uterus and adnexa are normal. The intestines have normal caliber without evidence of obstruction. No significant stool retention i s appreciated. The aorta has normal caliber. No lymphadenopathy or ascites. The bones are free of suspicious osteolytic or osteoblastic lesions. IMPRESSION: 1. No CT evidence of retained stool. Nonobstructive intestinal gas pattern. 2. Hepatic cirrhosis and splenomegaly. 3. Previous cholecystectomy without dilatation. 4. Exam limited by quantum model artifact.
== END 2018-08-21 20:53 | disposition home or self-care (01) ==
LOC: ED 16:51
DX: K59.00 Constipation, unspecified (principal); E11.9 Type 2 diabetes mellitus without complications; R11.0 Nausea; R10.84 Generalized abdominal pain; E78.5 Hyperlipidemia, unspecified; I25.10 Atherosclerotic heart disease of native coronary artery without angina pectoris; I10 Essential (primary) hypertension; Z79.899 Other long term (current) drug therapy
CPT/HCPCS: 36415; 80053; 81001; 82272; 83690; 85025; 85651; 99283